=== PATIENT | female | born 1930 | race African-American/Black ===

== ENCOUNTER 2016-12-04 17:30 | Inpatient (IN) | payer MEDICARE, MEDICAID ==
[~2016-12-04] VITALS: Ht 152.6 cm; Wt 59.0 kg
[~2016-12-04 17:30] MED LIST: AMLO2.5T45 PO; ASPI-986 PO; CLON0.5T4 PO; IBUP200C5 PO
[2016-12-04] MEDS ORDERED: TRAMADOL 50MG TABLET PO ONE (18:30)
[2016-12-04] MEDS ORDERED: SODIUM CHLORIDE 0.9% 250 ML IV ONE (18:38)
[2016-12-04 18:40] LABS: BASOPHILS % 0.5 % (0.0-2.0); EOSINOPHILS % 3.4 % (0.0-5.0); HEMATOCRIT. 35.7 % (36.0-48.0); LYMPHOCYTES % 24.4 % (20.0-50.0); MEAN CORPUSCULAR HEMOGLOBIN 30.7 pg (28.0-32.0); MEAN PLATELET VOLUME 7.5 fl (7.4-10.4); MONOCYTES % 6.3 % (2.0-8.0); NEUTROPHILS % 65.4 % (40.0-76.0); PLATELET 197 x1000/uL (130-400); RED BLOOD CELL COUNT 3.92 mill/uL (4.2-5.4); RED CELL DISTRIBUTION WIDTH 15.7 % (11.6-14.6)
[2016-12-04 18:46] LABS: CHLORIDE 107 mEq/L (98-107); INR 1.2; PARTIAL THROMBOPLASTIN TIME 27.1 sec (23.4-31.0); PROTHROMBIN TIME 12.5 sec (9.4-11.6)
[2016-12-04 18:55] LABS: CARBON DIOXIDE 28 mEq/L (21-32)
[2016-12-04 18:58] LABS: CREATINE KINASE MB FRACTION 2.3 ng/mL (0.5-3.6); TROPONIN I < 0.02 ng/mL (0.00-0.04)
[2016-12-04 20:40] LABS: CLARITY URINE CLEAR (CLEAR); COLOR URINE YELLOW (YELLOW); GLUCOSE URINE NEGATIVE (NEGATIVE); KETONES URINE NEGATIVE (NEGATIVE); LEUKOCYTE ESTERASE URINE TRACE (NEGATIVE); NITRITE URINE NEGATIVE (NEGATIVE); OCCULT BLOOD URINE NEGATIVE (NEGATIVE); PROTEIN URINE NEGATIVE (NEGATIVE); SPECIFIC GRAVITY URINE 1.008 (1.005-1.030); UROBILINOGEN URINE 0.2 E.U./dL (0.2-1.0)
[2016-12-04 21:25] VITALS: BP 159/74
[2016-12-04 22:00] VITALS: BP 159/74
[2016-12-05] VITALS: BP 138/78
[2016-12-05] MEDS ORDERED: ACETAMINOPHEN 325MG TABLET PO PRN (00:45)
[2016-12-05] MEDS ORDERED: ZOLPIDEM TARTRATE 5MG TABLET PO PRN (00:45)
[2016-12-05] MEDS ORDERED: MAGNESIUM HYDROXIDE 400MG/5ML 30ML UDC PO PRN (00:45)
[2016-12-05] MEDS ORDERED: ONDANSETRON HCL 4MG/2ML VIAL IV PRN (00:45)
[2016-12-05 04:00] VITALS: BP 129/64
[2016-12-05 07:58] VITALS: BP 151/72
[2016-12-05] MEDS: AMLODIPINE 2.5MG TABLET PO SCH (09:05)
[2016-12-05] MEDS: ASPIRIN 81MG TABLET PO SCH (10:48)
[2016-12-05 12:00] VITALS: BP 118/63
[2016-12-05 15:32] LABS: CREATINE KINASE 103 IU/L (26-192); CREATINE KINASE MB FRACTION 1.9 ng/mL (0.5-3.6); TROPONIN I < 0.02 ng/mL (0.00-0.04)
[2016-12-05 16:00] VITALS: BP_SYST 141; BP_SYST 142; BP_DIAS 75; BP_DIAS 79
[2016-12-05 20:00] VITALS: BP_SYST 119; BP_SYST 130; BP_DIAS 67
[2016-12-06] VITALS (7 sets, daily range): BP systolic 86–152; BP diastolic 15–81
[2016-12-06 00:26] LABS: CREATINE KINASE 108 IU/L (26-192); CREATINE KINASE MB FRACTION 1.7 ng/mL (0.5-3.6); TROPONIN I < 0.02 ng/mL (0.00-0.04)
[2016-12-06 07:11] LABS: CREATINE KINASE 103 IU/L (26-192); TROPONIN I < 0.02 ng/mL (0.00-0.04)
[2016-12-06 07:14] LABS: CREATINE KINASE MB FRACTION 1.5 ng/mL (0.5-3.6)
[2016-12-06] MEDS ORDERED: LACTULOSE 20G/30ML UDC PO PRN (09:30)
[2016-12-06] MEDS: DOCUSATE SODIUM 250MG CAPSULE PO SCH (09:30)
[2016-12-06] MEDS: AMLODIPINE 2.5MG TABLET PO SCH (09:31)
[2016-12-06] MEDS: ASPIRIN 81MG TABLET PO SCH (09:31)
[2016-12-07] VITALS (7 sets, daily range): BP systolic 90–172; BP diastolic 60–77
[2016-12-07] MEDS: NYSTATIN POWDER 15GM TOP SCH ×3 (08:27→18:34)
[2016-12-07] MEDS: AMLODIPINE 2.5MG TABLET PO SCH (08:28)
[2016-12-07] MEDS: ASPIRIN 81MG TABLET PO SCH (08:28)
[2016-12-07] MEDS: DOCUSATE SODIUM 250MG CAPSULE PO SCH (08:28)
[2016-12-07 20:10] LABS: VITAMIN B12 SERUM 532 pg/mL (211-911)
[2016-12-08] MEDS ORDERED: MULTIVITAMINS,THER W-MINERALS TABLET PO SCH (09:00)
[2016-12-08] MEDS ORDERED: ASCORBIC ACID 250 MG TABLET PO SCH (09:00)
[2016-12-08] MEDS ORDERED: ZINC SULFATE 220 MG ( 50 ) CAPSULE PO SCH (09:00)
== END 2016-12-07 23:10 | DRG 312 ==
LOC: ER 17:56 → 6WST 18:32 → EDBEDREQ 18:56 → ENRESERV 20:12 → 6WST 12-05 00:01
PROVIDERS: ADMIT Internal Medicine; ATTEND Internal Medicine
DX: I95.1 Orthostatic hypotension (principal); L89.159 Pressure ulcer of sacral region, unspecified stage; G20 Parkinson's disease; F03.90 Unspecified dementia, unspecified severity, without behavioral disturbance, psychotic disturbance, mood disturbance, and anxiety; E83.52 Hypercalcemia; M41.9 Scoliosis, unspecified; J44.9 Chronic obstructive pulmonary disease, unspecified; R55 Syncope and collapse; W18.30XA Fall on same level, unspecified, initial encounter; M17.9 Osteoarthritis of knee, unspecified; I10 Essential (primary) hypertension; M47.812 Spondylosis without myelopathy or radiculopathy, cervical region; Z96.652 Presence of left artificial knee joint; M51.26 Other intervertebral disc displacement, lumbar region; R26.81 Unsteadiness on feet; R73.9 Hyperglycemia, unspecified; M20.40 Other hammer toe(s) (acquired), unspecified foot; M48.06 Spinal stenosis, lumbar region; M81.0 Age-related osteoporosis without current pathological fracture; Y93.89 Activity, other specified; Y99.8 Other external cause status; Y92.009 Unspecified place in unspecified non-institutional (private) residence as the place of occurrence of the external cause; Z79.82 Long term (current) use of aspirin; Z79.899 Other long term (current) drug therapy; Z72.0 Tobacco use
CPT/HCPCS: 36415; 70450; 71010; 72125; 72141; 72146; 72148; 73502; 80053; 81001; 82550; 82553; 82607; 83735; 83880; 84443; 84484; 85025; 85610; 85730; 93005; 93306; 93880; 93970; 96360; 96361; 97163; 97530; 99291; A6261; J7050

== ENCOUNTER 2016-12-07 23:08 | Inpatient (IN) | payer MEDICARE, MEDICAID ==
[~2016-12-07] VITALS: Ht 167.6 cm; Wt 58.5 kg
[2016-12-07 23:35] VITALS: BP 157/77
[2016-12-08] MEDS ORDERED: LACTULOSE 20G/30ML UDC PO PRN (06:00)
[2016-12-08] MEDS: MULTIVITAMINS,THER W-MINERALS TABLET PO SCH (08:43)
[2016-12-08] MEDS: AMLODIPINE 2.5MG TABLET PO SCH (08:43)
[2016-12-08] MEDS: ZINC SULFATE 220 MG ( 50 ) CAPSULE PO SCH (08:43)
[2016-12-08] MEDS: ASCORBIC ACID 250 MG TABLET PO SCH (08:43)
[2016-12-08] MEDS: ASPIRIN 81MG TABLET PO SCH (08:43)
[2016-12-08] MEDS: DOCUSATE SODIUM 250MG CAPSULE PO SCH (08:44)
[2016-12-08 09:42] LABS: BASOPHILS % 0.4 % (0.0-2.0); EOSINOPHILS % 3.5 % (0.0-5.0); HEMATOCRIT. 37.2 % (36.0-48.0); HEMOGLOBIN. 12.4 g/dL (12.0-16.0); LYMPHOCYTES % 28.6 % (20.0-50.0); MEAN CORPUSCULAR HEMOGLOBIN 30.4 pg (28.0-32.0); MEAN CORPUSCULAR VOLUME 91.5 fL (81.0-99.0); MEAN PLATELET VOLUME 7.5 fl (7.4-10.4); MONOCYTES % 4.8 % (2.0-8.0); NEUTROPHILS % 62.7 % (40.0-76.0); PLATELET 205 x1000/uL (130-400); RED BLOOD CELL COUNT 4.07 mill/uL (4.2-5.4); RED CELL DISTRIBUTION WIDTH 15.2 % (11.6-14.6)
[2016-12-08] MEDS ORDERED: DEXT 5%/0.45% NACL 500ML 500 ML IV ONE (09:45)
[2016-12-08 10:03] LABS: CARBON DIOXIDE 28 mEq/L (21-32); CHLORIDE 106 mEq/L (98-107); PREALBUMIN 21.7 mg/dL (20.0-40.0)
[2016-12-08] MEDS: DEXT 5%/0.45% NACL 1000ML 1,000 ML IV SCH (12:07)
[2016-12-08] MEDS: NYSTATIN POWDER 15GM TOP SCH ×2 (14:47→21:19)
[2016-12-08 20:00] VITALS: BP 95/50
[2016-12-09] MEDS: DEXT 5%/0.45% NACL 1000ML 1,000 ML IV SCH ×2 (02:30→14:19)
[2016-12-09] MEDS: NYSTATIN POWDER 15GM TOP SCH ×3 (05:43→22:39)
[2016-12-09 05:46] VITALS: BP_SYST 101; BP_SYST 93; BP_DIAS 55; BP_DIAS 56
[2016-12-09 07:29] LABS: GLUCOSE URINE NEGATIVE (NEGATIVE); KETONES URINE NEGATIVE (NEGATIVE); LEUKOCYTE ESTERASE URINE 1+ (NEGATIVE); NITRITE URINE NEGATIVE (NEGATIVE); OCCULT BLOOD URINE NEGATIVE (NEGATIVE); PH URINE 5.5 (4.5-8.0); PROTEIN URINE NEGATIVE (NEGATIVE); SPECIFIC GRAVITY URINE 1.013 (1.005-1.030); UROBILINOGEN URINE 0.2 E.U./dL (0.2-1.0)
[2016-12-09 07:41] LABS: COLOR URINE PALE YELLOW (YELLOW)
[2016-12-09 08:00] VITALS: BP 123/54
[2016-12-09] MEDS: MULTIVITAMINS,THER W-MINERALS TABLET PO SCH (08:26)
[2016-12-09] MEDS: ZINC SULFATE 220 MG ( 50 ) CAPSULE PO SCH (08:26)
[2016-12-09] MEDS: DOCUSATE SODIUM 250MG CAPSULE PO SCH (08:27)
[2016-12-09] MEDS: ASPIRIN 81MG TABLET PO SCH (08:27)
[2016-12-09] MEDS: ASCORBIC ACID 250 MG TABLET PO SCH (08:27)
[2016-12-09] MEDS: AMLODIPINE 2.5MG TABLET PO SCH (08:27)
[2016-12-09 20:00] VITALS: BP 97/66
[2016-12-09] MEDS: ACETAMINOPHEN 325MG TABLET PO PRN (22:37)
[2016-12-10] MEDS: DEXT 5%/0.45% NACL 1000ML 1,000 ML IV SCH (04:15)
[2016-12-10] MEDS: NYSTATIN POWDER 15GM TOP SCH ×3 (06:22→22:47)
[2016-12-10 07:37] LABS: CARBON DIOXIDE 26 mEq/L (21-32); CHLORIDE 109 mEq/L (98-107); HDL CHOLESTEROL 46 mg/dL (40-59); LDL CHOLESTEROL 72 mg/dL (5-100); PHOSPHORUS 2.4 mg/dL (2.5-4.9); TOTAL IRON BINDING CAPACITY 248 ug/dL (250-450)
[2016-12-10 07:39] LABS: BASOPHILS % 0.5 % (0.0-2.0); EOSINOPHILS % 4.1 % (0.0-5.0); HEMATOCRIT. 34.8 % (36.0-48.0); HEMOGLOBIN. 11.8 g/dL (12.0-16.0); LYMPHOCYTES % 36.9 % (20.0-50.0); MEAN CORPUSCULAR HEMOGLOBIN 30.9 pg (28.0-32.0); MEAN CORPUSCULAR VOLUME 90.7 fL (81.0-99.0); MEAN PLATELET VOLUME 7.9 fl (7.4-10.4); MONOCYTES % 5.6 % (2.0-8.0); NEUTROPHILS % 52.9 % (40.0-76.0); PLATELET 194 x1000/uL (130-400); RED BLOOD CELL COUNT 3.84 mill/uL (4.2-5.4); RED CELL DISTRIBUTION WIDTH 15.4 % (11.6-14.6)
[2016-12-10 08:00] VITALS: BP 122/65
[2016-12-10 08:43] LABS: FOLIC ACID (FOLATE) SERUM 13.9 ng/mL (>5.38)
[2016-12-10] MEDS: AMLODIPINE 2.5MG TABLET PO SCH (09:00)
[2016-12-10] MEDS ORDERED: ZINC SULFATE 220 MG ( 50 ) CAPSULE PO SCH (09:00)
[2016-12-10] MEDS: DOCUSATE SODIUM 250MG CAPSULE PO SCH (09:30)
[2016-12-10] MEDS: ZINC SULFATE 220 MG ( 50 ) CAPSULE PO SCH (09:31)
[2016-12-10] MEDS: ASPIRIN 81MG TABLET PO SCH (09:31)
[2016-12-10] MEDS: MULTIVITAMINS,THER W-MINERALS TABLET PO SCH (09:31)
[2016-12-10] MEDS: LACTULOSE 20G/30ML UDC PO SCH ×3 (09:31→16:00)
[2016-12-10] MEDS: ASCORBIC ACID 250 MG TABLET PO SCH (09:31)
[2016-12-10] MEDS: FERROUS SULFATE 325MG TABLET PO SCH ×3 (09:31→17:27)
[2016-12-10 19:00] VITALS: BP 110/58
[2016-12-11] MEDS: NYSTATIN POWDER 15GM TOP SCH ×3 (06:00→21:30)
[2016-12-11 08:00] VITALS: BP 148/71
[2016-12-11] MEDS: ASCORBIC ACID 250 MG TABLET PO SCH (08:48)
[2016-12-11] MEDS: MULTIVITAMINS,THER W-MINERALS TABLET PO SCH (08:49)
[2016-12-11] MEDS: DOCUSATE SODIUM 250MG CAPSULE PO SCH (08:49)
[2016-12-11] MEDS: AMLODIPINE 2.5MG TABLET PO SCH (08:49)
[2016-12-11] MEDS: ZINC SULFATE 220 MG ( 50 ) CAPSULE PO SCH (08:49)
[2016-12-11] MEDS: FERROUS SULFATE 325MG TABLET PO SCH ×3 (08:49→17:40)
[2016-12-11] MEDS: ASPIRIN 81MG TABLET PO SCH (08:49)
[2016-12-11] MEDS ORDERED: POLYVINYL ALCOHOL OPHTH DROPS 15ML BOTHEYE PRN (11:00)
[2016-12-11 20:00] VITALS: BP 106/67
[2016-12-12] MEDS: NYSTATIN POWDER 15GM TOP SCH ×3 (05:09→21:03)
[2016-12-12 08:00] VITALS: BP 122/67
[2016-12-12] MEDS: MULTIVITAMINS,THER W-MINERALS TABLET PO SCH (08:55)
[2016-12-12] MEDS: ZINC SULFATE 220 MG ( 50 ) CAPSULE PO SCH (08:55)
[2016-12-12] MEDS: ASCORBIC ACID 250 MG TABLET PO SCH (08:55)
[2016-12-12] MEDS: FERROUS SULFATE 325MG TABLET PO SCH ×3 (08:55→17:24)
[2016-12-12] MEDS: ASPIRIN 81MG TABLET PO SCH (08:55)
[2016-12-12] MEDS: DOCUSATE SODIUM 250MG CAPSULE PO SCH (08:55)
[2016-12-12] MEDS: AMLODIPINE 2.5MG TABLET PO SCH (08:55)
[2016-12-12] MEDS: ACETAMINOPHEN 325MG TABLET PO PRN (17:24)
[2016-12-12] MEDS: MAGNESIUM HYDROXIDE 400MG/5ML 30ML UDC PO PRN (19:11)
[2016-12-12] MEDS ORDERED: TRAMADOL 50MG TABLET PO PRN (19:45)
[2016-12-12 20:00] VITALS: BP 140/96
[2016-12-13] MEDS: NYSTATIN POWDER 15GM TOP SCH ×3 (05:05→21:05)
[2016-12-13 06:22] LABS: 25-HYDROXY VITAMIN D3 15 ng/mL (.)
[2016-12-13 06:46] LABS: BASOPHILS % 0.4 % (0.0-2.0); EOSINOPHILS % 4.9 % (0.0-5.0); HEMATOCRIT. 35.4 % (36.0-48.0); HEMOGLOBIN. 11.9 g/dL (12.0-16.0); LYMPHOCYTES % 36.1 % (20.0-50.0); MEAN CORPUSCULAR HEMOGLOBIN 30.5 pg (28.0-32.0); MEAN CORPUSCULAR VOLUME 90.9 fL (81.0-99.0); MEAN PLATELET VOLUME 7.7 fl (7.4-10.4); MONOCYTES % 6.8 % (2.0-8.0); NEUTROPHILS % 51.8 % (40.0-76.0); PLATELET 197 x1000/uL (130-400); RED CELL DISTRIBUTION WIDTH 15.4 % (11.6-14.6)
[2016-12-13 06:58] LABS: CARBON DIOXIDE 28 mEq/L (21-32); CHLORIDE 107 mEq/L (98-107)
[2016-12-13 08:00] VITALS: BP 99/65
[2016-12-13] MEDS ORDERED: BISACODYL 10MG SUPP PR PRN (08:00)
[2016-12-13] MEDS ORDERED: ACETAMINOPHEN WITH CODEINE 300/30MG TABLET PO PRN (08:00)
[2016-12-13] MEDS: ZINC SULFATE 220 MG ( 50 ) CAPSULE PO SCH (08:32)
[2016-12-13] MEDS: ASPIRIN 81MG TABLET PO SCH (08:32)
[2016-12-13] MEDS: DOCUSATE SODIUM 250MG CAPSULE PO SCH (08:32)
[2016-12-13] MEDS: FERROUS SULFATE 325MG TABLET PO SCH ×3 (08:32→16:12)
[2016-12-13] MEDS: ASCORBIC ACID 250 MG TABLET PO SCH (08:32)
[2016-12-13] MEDS: AMLODIPINE 2.5MG TABLET PO SCH (08:32)
[2016-12-13] MEDS: MULTIVITAMINS,THER W-MINERALS TABLET PO SCH (08:32)
[2016-12-13] MEDS ORDERED: ERGOCALCIFEROL 50000UNITS CAPSULE PO SCH (09:00)
[2016-12-13 15:43] VITALS: BP 132/72
[2016-12-13 20:00] VITALS: BP 160/77
[2016-12-13] MEDS: POLYETHYLENE GLYCOL 3350 (17GM) 1 DOSE PACK PO SCH (21:05)
[2016-12-14] MEDS: MAGNESIUM HYDROXIDE 400MG/5ML 30ML UDC PO PRN ×2 (05:43→10:31)
[2016-12-14] MEDS: NYSTATIN POWDER 15GM TOP SCH ×3 (05:43→21:49)
[2016-12-14 08:00] VITALS: BP 119/66
[2016-12-14] MEDS: ZINC SULFATE 220 MG ( 50 ) CAPSULE PO SCH (08:13)
[2016-12-14] MEDS: AMLODIPINE 2.5MG TABLET PO SCH (08:13)
[2016-12-14] MEDS: FERROUS SULFATE 325MG TABLET PO SCH ×3 (08:13→16:29)
[2016-12-14] MEDS: DOCUSATE SODIUM 250MG CAPSULE PO SCH (08:13)
[2016-12-14] MEDS: ASCORBIC ACID 250 MG TABLET PO SCH (08:13)
[2016-12-14] MEDS: ASPIRIN 81MG TABLET PO SCH (08:13)
[2016-12-14] MEDS: MULTIVITAMINS,THER W-MINERALS TABLET PO SCH (08:13)
[2016-12-14] MEDS ORDERED: DIPHENHYDRAMINE 25MG CAPSULE PO PRN (09:30)
[2016-12-14] MEDS: TRIAMCINOLONE ACETONIDE 0.1% CREAM 15GM TOP SCH ×2 (12:35→16:29)
[2016-12-14] MEDS ORDERED: NA PHOS,M-B/NA PHOS,DI-BA ENEMA 118ML PR NR (14:00)
[2016-12-14] MEDS: LACTULOSE 20G/30ML UDC PO SCH ×3 (15:25→21:00)
[2016-12-14 20:00] VITALS: BP 132/68
[2016-12-14] MEDS: POLYETHYLENE GLYCOL 3350 (17GM) 1 DOSE PACK PO SCH (21:00)
[2016-12-15] MEDS: NYSTATIN POWDER 15GM TOP SCH ×2 (06:28→13:20)
[2016-12-15 08:00] VITALS: BP 117/66
[2016-12-15] MEDS: DOCUSATE SODIUM 250MG CAPSULE PO SCH (08:57)
[2016-12-15] MEDS: FERROUS SULFATE 325MG TABLET PO SCH ×2 (08:57→13:20)
[2016-12-15] MEDS: ASCORBIC ACID 250 MG TABLET PO SCH (08:57)
[2016-12-15] MEDS: MULTIVITAMINS,THER W-MINERALS TABLET PO SCH (08:57)
[2016-12-15] MEDS: ASPIRIN 81MG TABLET PO SCH (08:57)
[2016-12-15] MEDS: ZINC SULFATE 220 MG ( 50 ) CAPSULE PO SCH (08:57)
[2016-12-15] MEDS: AMLODIPINE 2.5MG TABLET PO SCH (08:59)
[2016-12-15] MEDS ORDERED: NA PHOS,M-B/NA PHOS,DI-BA ENEMA 118ML PR PRN (09:00)
[2016-12-15] MEDS: TRIAMCINOLONE ACETONIDE 0.1% CREAM 15GM TOP SCH ×2 (09:05→13:20)
[2016-12-15 15:24] VITALS: BP 127/69
== END 2016-12-15 16:30 | disposition home health service (06) | DRG 57 ==
PROVIDERS: ADMIT Physical Medicine & Rehabilitation Spinal Cord Injury Medicine; ATTEND Internal Medicine
DX: G20 Parkinson's disease (principal); L89.159 Pressure ulcer of sacral region, unspecified stage; C95.90 Leukemia, unspecified not having achieved remission; I11.9 Hypertensive heart disease without heart failure; M48.02 Spinal stenosis, cervical region; M41.9 Scoliosis, unspecified; E83.52 Hypercalcemia; F03.90 Unspecified dementia, unspecified severity, without behavioral disturbance, psychotic disturbance, mood disturbance, and anxiety; E61.1 Iron deficiency; F17.210 Nicotine dependence, cigarettes, uncomplicated; I95.1 Orthostatic hypotension; Z96.652 Presence of left artificial knee joint; M81.0 Age-related osteoporosis without current pathological fracture; M51.26 Other intervertebral disc displacement, lumbar region; M47.812 Spondylosis without myelopathy or radiculopathy, cervical region; R26.9 Unspecified abnormalities of gait and mobility; E21.3 Hyperparathyroidism, unspecified; R53.81 Other malaise; E55.9 Vitamin D deficiency, unspecified; R73.9 Hyperglycemia, unspecified; M20.40 Other hammer toe(s) (acquired), unspecified foot; D64.9 Anemia, unspecified; Z82.49 Family history of ischemic heart disease and other diseases of the circulatory system; Z79.899 Other long term (current) drug therapy
CPT/HCPCS: 36415; 80048; 80053; 80061; 81001; 82306; 82607; 82728; 82746; 83036; 83540; 83550; 83735; 84100; 84134; 84443; 84630; 85025; 87086; 92523; 93005; 97110; 97116; 97162; 97166; 97530; 97535; A6261; C1893; J3490; Q0163